=== PATIENT | female | born 2005 | race Two or more races ===

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

== ENCOUNTER 2024-01-31 11:00 | Observation (INO) | payer BC ==
[~2024-01-31] VITALS: Ht 152.4 cm; Wt 61.7 kg
[~2024-01-31 11:00] MED LIST changes: -CEPH-510 PO
== END 2024-01-31 13:33 | disposition home or self-care (01) ==
LOC: LDRP 11:00
PROVIDERS: ADMIT Obstetrics & Gynecology; ATTEND Obstetrics & Gynecology
DX: O40.3XX0 Polyhydramnios, third trimester, not applicable or unspecified (principal); O62.9 Abnormality of forces of labor, unspecified; Z3A.36 36 weeks gestation of pregnancy
CPT/HCPCS: 59025; 76818; 81002; 94760; 96360; 96361; G0378

== ENCOUNTER 2024-02-04 12:54 | Observation (INO) | payer BC | END 2024-02-04 14:57 | disposition home or self-care (01) | LOC: LDRP 12:54 → UNDOADMOB 12:54 → LDRP 13:04 → UNDODISOB 14:57 | PROVIDERS: ADMIT Obstetrics & Gynecology; ATTEND Obstetrics & Gynecology | DX: O40.3XX0 Polyhydramnios, third trimester, not applicable or unspecified (principal); O23.13 Infections of bladder in pregnancy, third trimester; N30.00 Acute cystitis without hematuria; O24.419 Gestational diabetes mellitus in pregnancy, unspecified control; Z3A.36 36 weeks gestation of pregnancy | CPT/HCPCS: 59025; 76818; 81002; 94760; G0378 ==

== ENCOUNTER 2024-02-07 11:35 | Observation (INO) | payer BC ==
[2024-02-07 12:14] LABS: Fern Testing Negative
== END 2024-02-07 13:41 | disposition home or self-care (01) ==
LOC: LDRP 11:35 → UNDOADMOB 11:35 → LDRP 11:46 → UNDODISOB 13:41
PROVIDERS: ADMIT Obstetrics & Gynecology; ATTEND Obstetrics & Gynecology
DX: O40.3XX0 Polyhydramnios, third trimester, not applicable or unspecified (principal); O62.9 Abnormality of forces of labor, unspecified; Z3A.37 37 weeks gestation of pregnancy
CPT/HCPCS: 59025; 76818; 81002; 84112; G0378; Q0114

== ENCOUNTER 2024-02-10 11:35 | Observation (INO) | payer BC | END 2024-02-10 12:41 | disposition home or self-care (01) | LOC: LDRP 11:35 | PROVIDERS: ADMIT Obstetrics & Gynecology; ATTEND Obstetrics & Gynecology | DX: O40.3XX0 Polyhydramnios, third trimester, not applicable or unspecified (principal); O62.9 Abnormality of forces of labor, unspecified; O26.893 Other specified pregnancy related conditions, third trimester; N89.8 Other specified noninflammatory disorders of vagina; R10.9 Unspecified abdominal pain; Z3A.37 37 weeks gestation of pregnancy | CPT/HCPCS: 59025; 81002; G0378 ==

== ENCOUNTER 2024-02-12 13:05 | Observation (INO) | payer BC | END 2024-02-12 14:00 | disposition home or self-care (01) | LOC: UNDOADMOB 13:05 → LDRP 13:05 → UNDODISOB 14:00 | PROVIDERS: ADMIT Obstetrics & Gynecology; ATTEND Obstetrics & Gynecology | DX: O40.3XX0 Polyhydramnios, third trimester, not applicable or unspecified (principal); O62.9 Abnormality of forces of labor, unspecified; Z3A.38 38 weeks gestation of pregnancy | CPT/HCPCS: 59025; 76818; 81002; 94760; G0378 ==

== ENCOUNTER 2024-02-16 16:00 | Inpatient (IN) | payer BC, MEDICAID ==
[~2024-02-16] VITALS: Ht 152.4 cm; Wt 63.0 kg
[2024-02-16] MEDS ORDERED: LACTATED RINGER'S 1,000 ML IV SCH (17:45)
[2024-02-16 18:22] LABS: Urine Blood Negative /uL (Negative); Urine Clarity Clear (Clear); Urine Color Yellow (Yellow); Urine Protein, UAD 1+ (Negative); Urine Specific Gravity 1.029 (1.001-1.035); Urine Urobilinogen 2 mg/dL (Negative); Urine pH 6.5 (5.0-9.0)
[2024-02-16 18:24] LABS: Basophils # (auto) 0 10 ^3/uL (0-0.2); Basophils % (auto) 0.3 % (0.0-2.0); Eosinophils # (auto) 0 10 ^3/uL (0-0.8); Eosinophils % (auto) 0.1 % (0.0-7.0); Hematocrit 34.9 % (36.0-46.0); Hemoglobin 11.6 g/dL (12.2-16.2); Lymphocytes % (auto) 8.6 % (10.0-50.0); Mean Corpuscular Hemoglobin 29.5 pg (28.0-32.0); Mean Corpuscular Hgb Conc. 33.3 g/dL (32.0-36.0); Mean Corpuscular Volume 88.4 fL (80.0-100.0); Monocytes # (auto) 0.4 10 ^3/uL (0-1.3); Monocytes % (auto) 3.2 % (0.0-12.0); Neutrophils # (auto) 10.7 10 ^3/uL (1.6-8.6); Neutrophils % (auto) 87.8 % (37.0-80.0); Red Blood Cells 3.95 10^6/uL (4.0-5.20); Red Cell Distribution Width 13.8 % (11.8-14.3); White Blood Cell 12.2 10^3/uL (4.4-10.8)
[2024-02-16 18:33] LABS: Alanine Aminotransferase < 9 U/L (7-40); Albumin 4.4 g/dL (3.2-4.8); Alkaline Phosphatase 226 U/L (46-116); Anion Gap 11 (5-15); Aspartate Aminotransferase 16 U/L (13-40); BUN/Creatinine Ratio 16.1 (10.0-20.0); Blood Urea Nitrogen 9 mg/dL (9-23); Calcium 9.4 mg/dL (8.7-10.4); Carbon Dioxide 21 mmol/L (20-30); Chloride 105 mmol/L (98-107); Glucose 67 mg/dL (74-106); Potassium 3.6 mmol/L (3.5-5.1); Sodium 137 mmol/L (136-145)
[2024-02-16 18:34] LABS: Bilirubin, Total 0.7 mg/dL (0.2-1.0); Total Protein 7.1 g/dL (5.7-8.2)
[2024-02-16 18:39] LABS: INR 0.96 (0.9-1.15); Partial Thromboplastin Time 27.5 SEC (24.5-34.5); Prothrombin Time 10.2 sec (9.3-11.8)
[2024-02-16] MEDS ORDERED: miSOPROStol 50 MCG per PRE-CUT 1/2 TAB PO PRN (19:30)
[2024-02-16] MEDS ORDERED: BUTORPHANOL TARTRATE 2 MG/1 ML VIAL IV PRN ×2 (19:30)
[2024-02-16] MEDS ORDERED: LIDOCAINE 2%HCL (LOCAL ANESTH.) INJ 20ML MDV IJ PRN (19:30)
[2024-02-16] MEDS: D5W/LACTATED RINGERS 1,000 ML IV SCH (19:30)
[2024-02-16] MEDS: ONDANSETRON HCL 4 MG/2 ML VIAL IV PRN (19:35)
[2024-02-16 19:38] LABS: Amphetamine Screen, Urine Neg (NEGATIVE); Barbiturate Scree,Urine Neg (NEGATIVE); Benzodiazephine Screen, Urine Neg (NEGATIVE); Cocaine Screen, Urine Neg (NEGATIVE)
[2024-02-16 19:39] LABS: Cannabinoid Screen, Urine Neg (NEGATIVE); Opiate Scree,Urine Neg (NEGATIVE); Phencyclidine Screen, Urine Neg (NEGATIVE)
[2024-02-16] MEDS: LACTATED RINGER'S 1,000 ML IV SCH (19:50)
[2024-02-16] MEDS ORDERED: TERBUTALINE SULFATE 1 MG/ML 1ML VIAL SC PRN (21:30)
[2024-02-16] MEDS: ePHEDrine SULFATE 50 MG/ML AMP ONE (22:28)
[2024-02-16] MEDS: fentaNYL CITRATE 100 MCG/2 ML VL ONE (22:36)
[2024-02-16] MEDS ORDERED: ePHEDrine SULFATE 50 MG/ML AMP IV ONE (23:15)
[2024-02-16] MEDS: LACTATED RINGER'S 500 ML IV ONE (23:15)
[2024-02-16] MEDS ORDERED: NALOXONE HCL 0.4 MG/ML VIAL IV ONE (23:15)
[2024-02-16] MEDS ORDERED: LIDOCAINE HCL 2 %PF INJ 10ML AMP IJ ONE (23:15)
[2024-02-16] MEDS: LACT. RINGERS/OXYTOCIN 20UNITS 1,000 ML IV SCH (23:53)
[2024-02-16] MEDS: WITCH HAZEL-GLYCERIN PAD TOP PRN (23:59)
[2024-02-16] MEDS: PHISODERM TOP SOLN 240ML BTL TOP PRN (23:59)
[2024-02-16] MEDS: DERMOPLAST 60ML BOTTLE TOP PRN (23:59)
[2024-02-17] MEDS: ceFAZolin 2 GM/D5W50ml 50 ML IV ONE (03:12)
[2024-02-17] MEDS: ROPIVACAINE HCL 200 ML ONE (03:12)
[2024-02-17] MEDS ORDERED: METHYLERGONOVINE MALEATE 0.2 MG/ML AMP IM ONE (06:00)
[2024-02-17] MEDS ORDERED: CARBOPROST TROMETHAMINE 250 MCG/1ML VIAL IM ONE (06:00)
[2024-02-17] MEDS ORDERED: miSOPROStol 100 mcg TAB PR PRN (07:15)
[2024-02-17] MEDS ORDERED: miSOPROStol 100 mcg TAB SL PRN (07:15)
[2024-02-17] MEDS: DIPHENOXYLATE W/ATROPINE 2.5 MG TAB PO PRN (07:19)
[2024-02-17 07:56] LABS: COVID19 ANTIGEN SOFIA FIA NEGATIVE (NEGATIVE)
[2024-02-17] MEDS: LACT. RINGERS/OXYTOCIN 20UNITS 500 ML IV ONE ×2 (09:03→09:16)
[2024-02-17] MEDS ORDERED: ONDANSETRON ODT 4 MG TAB PO PRN (10:45)
[2024-02-17 11:00] VITALS: BP 114/68; PULSE 90; RESP 18; TEMP 98.9
[2024-02-17 11:46] VITALS: PULSE 110; RESP 18
[2024-02-17] MEDS: IBUPROFEN 600 MG TAB PO PRN (12:38)
[2024-02-17] MEDS: ceFAZolin 1GM/50ML 50 ML IV SCH (12:41)
[2024-02-17 15:14] VITALS: BP 108/60; PULSE 88; RESP 18; TEMP 98.3
[2024-02-17 18:30] VITALS: BP 100/54; PULSE 65; RESP 18; TEMP 98; O2SAT 97
[2024-02-17] MEDS: ACETAMINOPHEN 325 MG TAB PO PRN (19:32)
[2024-02-17 22:42] VITALS: BP 106/59; PULSE 73; RESP 18; TEMP 98.2; O2SAT 97
[2024-02-18 02:43] VITALS: BP 104/58; PULSE 75; RESP 18; TEMP 97.7; O2SAT 99
[2024-02-18 06:55] VITALS: RESP 16; O2SAT 97
[2024-02-18 07:00] VITALS: BP 98/56; PULSE 65; RESP 16; TEMP 97.7; O2SAT 99
[2024-02-18 11:00] VITALS: BP 101/57; PULSE 62; RESP 16; TEMP 97.7; O2SAT 96
== END 2024-02-18 13:31 | disposition home or self-care (01) | DRG 807 ==
LOC: LDRP 16:00 → OBSVTOIN 19:22 → LDRP 23:33
PROVIDERS: ADMIT Obstetrics & Gynecology; ATTEND Obstetrics & Gynecology
PROC: 10E0XZZ Delivery of Products of Conception, External Approach (ICD-10-PCS; principal; 2024-02-17)
PROC: 3E0DXGC Introduction of Other Therapeutic Substance into Mouth and Pharynx, External Approach (ICD-10-PCS; 2024-02-17)
PROC: 0HQ9XZZ Repair Perineum Skin, External Approach (ICD-10-PCS; 2024-02-17)
PROC: 3E0R3BZ Introduction of Anesthetic Agent into Spinal Canal, Percutaneous Approach (ICD-10-PCS; 2024-02-17)
PROC: 00HU33Z Insertion of Infusion Device into Spinal Canal, Percutaneous Approach (ICD-10-PCS; 2024-02-17)
DX: O40.3XX0 Polyhydramnios, third trimester, not applicable or unspecified (principal); Z37.0 Single live birth; O70.0 First degree perineal laceration during delivery; O76 Abnormality in fetal heart rate and rhythm complicating labor and delivery; Z3A.38 38 weeks gestation of pregnancy; Z20.822 Contact with and (suspected) exposure to COVID-19; O77.0 Labor and delivery complicated by meconium in amniotic fluid
CPT/HCPCS: 36415; 59025; 59200; 59409; 62282; 76818; 80053; 80307; 81002; 81003; 82948; 82962; 85025; 85610; 85730; 86592; 86803; 86850; 86900; 86901; 87426; 94760; 94762; 96360; 96361; 96365; 96366; 96374; 96375; G0378; J2405; J2590